=== PATIENT | female | born 1970 ===

== ENCOUNTER 2021-06-04 12:29 | Outpatient (CLI) | payer OTHER | END 2021-06-04 12:39 | disposition home or self-care (01) | LOC: MAMO-SONO 12:29 | DX: N60.01 Solitary cyst of right breast (principal); N64.59 Other signs and symptoms in breast; Z12.31 Encounter for screening mammogram for malignant neoplasm of breast; N60.11 Diffuse cystic mastopathy of right breast ==

== ENCOUNTER 2024-02-01 13:11 | Outpatient (CLI) | payer OTHER ==
[~2024-02-01 13:11] MED LIST: SYNTHROID175 MCG PO
== END 2024-02-01 13:29 | disposition home or self-care (01) ==
LOC: MAMO-SONO 13:11
PROVIDERS: ATTEND General Practice
DX: N63.20 Unspecified lump in the left breast, unspecified quadrant (principal); N63.10 Unspecified lump in the right breast, unspecified quadrant; E03.9 Hypothyroidism, unspecified; E04.0 Nontoxic diffuse goiter